=== PATIENT | male | born 1995 | race Caucasian/White ===

== ENCOUNTER → 2018-11-29 | Outpatient (CLI) | payer OTHER | END | disposition home or self-care (01) | LOC: LAB 09:51 | PROVIDERS: ATTEND Preventive Medicine Preventive Medicine/Occupational Environmental Medicine | DX: Z02.1 Encounter for pre-employment examination (principal) | CPT/HCPCS: 36415; 86706; 86735; 86762; 86765; 86787 ==

== ENCOUNTER 2024-09-23 05:33 | Emergency (ER) | payer BC, OTHER ==
[~2024-09-23] VITALS: Ht 182.9 cm; Wt 119.0 kg
[2024-09-23 05:51] VITALS: BP 143/69; PULSE 103; RESP 18; O2SAT 93
[2024-09-23 06:18] LABS: Hematocrit 49.1 % (41.0-53.0); Hemoglobin 16.7 g/dL (13.5-17.5); Mean Corpuscular Hemoglobin 30.3 pg (28.0-32.0); Mean Corpuscular Volume 89.1 fL (80.0-100.0); Platelet Count (auto) 167 10^3/uL (140-450); Red Blood Cells 5.51 10^6/uL (4.5-5.90); Red Cell Distribution Width 12.8 % (11.8-14.3)
[2024-09-23 06:22] LABS: Band Neutrophils % (manual) 0; Basophils % (manual) 0 (0.0-2.0); Blast Cells 0; Metamyelocytes % 0; Myelocytes % 0; Promyelocytes % 0; Reactive Lymphocytes 0
[2024-09-23] MEDS: SODIUM CHLORIDE 0.9% 1,000 ML IV ONE (06:25)
[2024-09-23 06:27] LABS: Chloride 107 mmol/L (98-107); Potassium 4.3 mmol/L (3.5-5.1); Sodium 137 mmol/L (136-145)
[2024-09-23 06:28] VITALS: TEMP 99.6
[2024-09-23 06:28] LABS: Anion Gap 9 (5-15); Calcium 9.3 mg/dL (8.7-10.4); Carbon Dioxide 21 mmol/L (20-31)
[2024-09-23] MEDS: ACETAMINOPHEN 325 MG TAB PO ONE (06:28)
[2024-09-23 06:33] LABS: BUN/Creatinine Ratio 5.4 (10.0-20.0); Glucose 101 mg/dL (74-106)
--- NOTE | 2024-09-23 06:42 | ED.PDOC ---
History of Present Illness HPI Comments 28 y/o M presents with c/o fever, chills, congestion, cough, wheezing, and generalized bodyaches for the past 3x days, worse today. Patient reports having a fever as high as 102.0F consistently x3 days with occasional fluctuations. He reports minimal relief or improvement with [id number] Tylenol and na proxen. He denies having any vomiting, diarrhea, abdominal pain, shortness of breath, or other associated symptoms or modifiers at this time. Chief Complaint: Flu like Time Seen by MD: 06:30 Reviewed Notes: Nurses Notes, Medications, Allergies Allergies: Coded Allergies: NO KNOWN ALLERGIES (Unverified , 09/23/24) Information Source: Patient Mode of Arrival: Ambulatory Severity: Moderate Timing: Days Duration: Since onset Prehospital treatment: None Past Medical History PAST MEDICAL HISTORY: Denies Surgical History: Denies all surgeries Family History Family History: Unknown Social History Smoker: Non-Smoker Alcohol: Denies ETOH Use Drugs: Denies Drug Use Lives In: Home Constitutional: reports: chills, fever EENTM: reports: nose congestion Respiratory: reports: cough, wheezing Musculoskeletal: reports: others (generalized bodyaches) All Other Systems: Reviewed and Negative (negative unless otherwise stated above or in HPI) Physical Exam General Appearance: No Apparent Distress HEENT: Other (Pupils symmetric, moist mucous membranes) Neck: Full Range of Motion, Normal Inspection Respiratory: No Accessory Muscle Use, No Respiratory Distress Cardiovascular: No Edema, No JVD, Regular Rate/Rhythm Breast Exam: Deferred Gastrointestinal: Other (Nondistended) Genitalia: Deferred Pelvic: Deferred Rectal: Deferred Extremities: Normal inspection, Normal range of motion, No pedal edema Neurologic: Alert (Oriented x4), Normal Affect, Normal Mood, Other (Ambulatory without difficulty. No gross focal deficit.) Cerebellar Function: NOT DONE Reflexes: NOT DONE Skin: Dry, Normal Color, Warm Lymphatic: NOT DONE Was a procedure done? Was a procedure done?: No Differential Dx Considerations may include: URI, Covid19, PNA, bronchitis, viral syndrome, among others X-Ray, Labs, Meds, VS Vital Signs Date Time Temp Pulse Resp B/P (MAP) Pulse Ox O2 Delivery O2 Flow Rate FiO2 09/23/24 06:28 99.6 09/23/24 05:51 99.6 103 18 143/69 (93) 93 Lab Test 09/23/24 06:03 09/23/24 06:00 Range/Units White Blood Count 5.0 4.4-10.8 10^3/uL Red Blood Count 5.51 4.5-5.90 10^6/uL Hemoglobin 16.7 13.5-17.5 g/dL Hematocrit 49.1 41.0-53.0 % Mean Corpuscular Volume 89.1 80.0-100.0 fL Mean Corpuscular Hemoglobin 30.3 28.0-32.0 pg Mean Corpuscular Hemoglobin Concent 34.0 32.0-36.0 g/dL Red Cell Distribution Width 12.8 11.8-14.3 % Platelet Count 167 140-450 10^3/uL Mean Platelet Volume 8.7 6.9-10.8 fL Neutrophils (%) (Auto) 37.0-80.0 % Lymphocytes (%) (Auto) 10.0-50.0 % Monocytes (%) (Auto) 0.0-12.0 % Basophils (%) (Auto) 0.0-2.0 % Neutrophils # (Auto) 1.6-8.6 10 ^3/uL Lymphocytes # (Auto) 0.4-5.4 10 ^3/uL Monocytes # (Auto) 0-1.3 10 ^3/uL Differential Total Cells Counted Pending Neutrophils % (Manual) Pending Band Neutrophils % (Manual) Pending Lymphocytes % (Manual) Pending Monocytes % (Manual) Pending Eosinophils % (Manual) Pending Basophils % (Manual) Pending Metamyelocytes % (manual) Pending Myelocytes % (Manual) Pending Promyelocytes % (Manual) Pending Blast Cells % (Manual) Pending Reactive Lymphocytes Pending Platelet Estimate Pending Sodium Level 137 136-145 mmol/L Potassium Level 4.3 3.5-5.1 mmol/L Chloride Level 107 98-107 mmol/L Carbon Dioxide Level 21 20-31 mmol/L Anion Gap 9 5-15 Blood Urea Nitrogen 7 L 9-23 mg/dL Creatinine 1.30 0.700-1.30 mg/dL Glomerular Filtration Rate Calc 77 >90 mL/min BUN/Creatinine Ratio 5.4 L 10.0-20.0 Serum Glucose 101 74-106 mg/dL Calcium Level 9.3 8.7-10.4 mg/dL Influenza Type A Antigen Pending Influenza Type B Antigen Pending SARS-CoV-2 Antigen (Rapid) Pending Current Medications Medications (Trade) Dose Ordered Sig/Anurag Route Start Time Stop Time Status Last Admin Sodium Chloride 1,000 ml @ 1,000 mls/hr Q1H ONCE IV 09/23/24 06:15 09/23/24 07:14 09/23/24 06:25 Acetaminophen (Tylenol Tablet) 650 mg ONCE ONCE PO 09/23/24 06:15 09/23/24 06:16 DC 09/23/24 06:28 Ondansetron HCl (Zofran) 4 mg ONCE ONCE IV 09/23/24 06:30 09/23/24 06:31 DC 09/23/24 06:43 Ketorolac Tromethamine (Toradol Injection) 30 mg ONCE ONCE IV 09/23/24 06:45 09/23/24 06:46 DC 09/23/24 06:43 X-Ray, Labs, Meds, VS Comment 28-year-old male with no significant past medical history complaining of flu- like symptoms Vitals remarkable for temperature 99.6, heart rate 103, BP 143/69, oxygen saturation 93% on room air Exam unremarkable Rhythm strip independently interpreted by me: Sinus tach, rate 103, no ectopy. Chest x-ray CBC, basic metabolic panel unremarkable for any abnormality of acute significance COVID negative, influenza A positive Patient treated with the following in the ED: 1 L 0.9 normal saline IV bolus, Toradol 30 mg IV, Zofran 4 mg IV, Tylenol 650 mg p.o. On re-evaluation, patient is well-appearing, ambulatory without difficulty and in no respiratory distress. Patient appears stable for outpatient treatment and close follow up with his primary physician. Rx Tamiflu, Phenergan Time of 1ST Reevaluation: 07:00 Reevaluation 1ST: Unchanged Time of 2ND Reevaluation: 07:09 Reevaluation 2ND: Improved Patient Education/Counseling: Diagnosis, Treatment Family Education/Counseling: No Family Present Departure 1 Departure Time of Disposition: 07:09 Impression: Primary Impression: Influenza A Disposition: 01 HOME / SELF CARE / HOMELESS Condition: Stable Additional Instructions: Your blood tests were unremarkable. Your COVID test was negative. Your influenza test was positive for influenza A. I have prescribed the antiviral medication for influenza, as well as cough medication. Follow up with primary doctor in 1-2 days. e-Prescriptions Promethazine HCl (Promethazine Hydrochlorid) 25 Mg Tab 25 MG PO Q6HP PRN, #30 TAB prn cough or nausea Prov: DELL CABRERA MD 09/23/24 Oseltamivir Phosphate (Tamiflu) 75 Mg Cap 75 MG PO BID for 5 Days, #10 CAP Prov: DELL CABRERA MD 09/23/24 Discharged With: Self Critical Care Note Critical Care Time?: No Stability Stability form required: No Heart Score Heart Score: Heart Score Response (Comments) Value History N/A 0 EKG N/A 0 Age N/A 0 Risk Factors N/A 0 Troponin N/A 0 Total 0 I personally scribed for DELL CABRERA MD ([email or web address]) on 09/23/24 at 06:42. Electronically submitted by Luisito Riggs ([email or web address]). DELL CABRERA MD Sep 23, 2024 06:42
[2024-09-23] MEDS: ONDANSETRON HCL 4 MG/2 ML VIAL IV ONE (06:43)
[2024-09-23] MEDS: KETOROLAC TROMETH 30 MG/ML 1ML VIAL IV ONE (06:43)
[2024-09-23 06:45] LABS: Blood Urea Nitrogen 7 mg/dL (9-23)
[2024-09-23 07:01] LABS: COVID19 ANTIGEN SOFIA FIA NEGATIVE (NEGATIVE); Rapid Influenza A Positive (Negative); Rapid Influenza B Negative (Negative)
--- NOTE | 2024-09-23 07:10 | DVH ---
Procedure: XY CHEST TWO VIEWS ROUTINE 09/23/2024 06:51 AM Indication: fever Comparison: None TECHNIQUE: XY CHEST TWO VIEWS ROUTINE FINDINGS: Medical devices: None. Cardiomediastinal: The heart is normal in size. Pulmonary vasculature is within normal limits. Lungs: No focal pulmonary opacity is seen. The costophrenic angles are clear. No pneumothorax. Bones/soft tissues: No acute abnormality is noted. IMPRESSION: 1. No acute cardiopulmonary disease.
[2024-09-23] MEDS ORDERED: OSEL75CA5 PO (07:13)
[2024-09-23] MEDS ORDERED: PROM25TA21 PO (07:13)
[2024-09-23 07:45] LABS: Lymphocytes % (manual) 11 (10.0-50.0)
[2024-09-23 07:46] LABS: Eosinophils % (manual) 1 (0-7); Monocytes % (manual) 22 (0-12); Platelet Estimate Adequate
== END 2024-09-23 07:14 | disposition home or self-care (01) ==
LOC: ER 05:33
DX: J10.1 Influenza due to other identified influenza virus with other respiratory manifestations (principal); Z20.822 Contact with and (suspected) exposure to COVID-19
CPT/HCPCS: 36415; 71046; 80048; 85007; 85027; 87426; 87804; 96361; 96374; 96375; 99284; J1885; J2405; J7030